=== PATIENT | male | born 1965 | race Caucasian/White ===

== ENCOUNTER → 2018-03-20 | Outpatient (REF) | payer OTHER ==
[2018-03-20 14:24] LABS: PSA SCREENING 0.67 NG/ML (< 4.0)
[2018-03-20 14:26] LABS: AMORPHOUS SEDIMENT SMALL (NEGATIVE); APPEARANCE, URINE HAZY (CLEAR); BACTERIA, URINE AUTO NEGATIVE (NEGATIVE); BILIRUBIN, URINE AUTO NEGATIVE (NEGATIVE); BLOOD, URINE BLOOD NEGATIVE (NEGATIVE); COLOR, URINE YELLOW (YELLOW); GLUCOSE, URINE (UA) AUTO NEGATIVE (NEGATIVE); KETONE, URINE AUTO NEGATIVE (NEGATIVE); LEUKOCYTE ESTERASE, URINE AUTO NEGATIVE (NEGATIVE); NITRITE, URINE AUTO NEGATIVE (NEGATIVE); PROTEIN, URINE AUTO NEGATIVE (NEGATIVE); RBC, URINE AUTO 1 /HPF (0-3); SPECIFIC GRAVITY URINE AUTO 1.012 (1.002-1.035); SQUAMOUS EPITHELIAL CELL UR AU 0 /HPF (0-6); UROBILINOGEN, URINE AUTO 0.2 mg/dL (0.0-2.0); WBC, URINE AUTO 1 /HPF (0-3)
[2018-03-20 16:18] LABS: CHLAMYDIA DNA AMPLIFICATION NEGATIVE (NEGATIVE); GC DNA AMPLIFICATION NEGATIVE (NEGATIVE)
== END ==
LOC: M SFHCPLAZ 10:19
DX: R35.0 Frequency of micturition (principal)

== ENCOUNTER 2018-06-16 11:59 | Day surgery (SDC) | payer OTHER ==
[2018-06-16] MEDS: NS 1,000 ML IV ×2 (06:00→12:26)
[2018-06-16] MEDS ORDERED: LIDOCAINE 2% INJ 100 MG/5 ML SDV (FOR ANES.) As Ordered (12:33)
[2018-06-16] MEDS ORDERED: PROPOFOL 200 MG/20 ML VIAL As Ordered ×2 (12:33→13:55)
== END 2018-06-16 14:42 | disposition home or self-care (01) ==
LOC: M OPP 11:59
DX: Z12.11 Encounter for screening for malignant neoplasm of colon (principal); K64.0 First degree hemorrhoids; K57.30 Diverticulosis of large intestine without perforation or abscess without bleeding; Z87.442 Personal history of urinary calculi; N40.1 Benign prostatic hyperplasia with lower urinary tract symptoms; F12.10 Cannabis abuse, uncomplicated; Z87.891 Personal history of nicotine dependence
CPT/HCPCS: G0121

== ENCOUNTER 2018-10-17 00:27 | Emergency (ER) | payer OTHER ==
[~2018-10-17] VITALS: Ht 182.9 cm; Wt 84.1 kg
[~2018-10-17 00:27] MED LIST: CIAL2.5T PO; TRAZ-160 PO; [UNRECOGNIZED DRUG - OTHER] PO; [UNRECOGNIZED DRUG - OTHER] PO
[2018-10-17] MEDS ORDERED: ONDANSETRON 4MG/2ML VIAL (J2405) IV ONE (00:45)
[2018-10-17] MEDS ORDERED: NS 1,000 ML IV ONE (00:45)
[2018-10-17] MEDS ORDERED: KETOROLAC 30 MG/ML VIAL (J1885) IV ONE (00:45)
[2018-10-17 01:03] LABS: BASO # 0.1 10^3/uL (0.0-0.2); BASO % 0.5 % (0.0-1.0); EOS # 0.1 10^3/uL (0.0-0.50); EOS % 0.5 % (0.0-3.0); HEMATOCRIT 42.3 % (42.0-52.0); HEMOGLOBIN 14.3 g/dl (13.5-17.5); LYMPH # 1.9 10^3/uL (1.5-4.5); LYMPH % 12.5 % (24.0-44.0); MEAN CORPUSCULAR HEMOGLOBIN 30.1 pg (27.0-33.0); MEAN CORPUSCULAR HGB CONC 33.8 g/dl (32.0-36.5); MEAN CORPUSCULAR VOLUME 89.1 fl (80.0-96.0); MONO % 6.9 % (0.0-5.0); NEUTROPHILS % 79.1 % (36.0-66.0); PLATELET COUNT, AUTOMATED 308 10^3/uL (150-450); RED BLOOD COUNT 4.75 10^6/uL (4.30-6.10); WHITE BLOOD COUNT 15.2 10^3/uL (4.0-10.0)
[2018-10-17 01:25] LABS: ALBUMIN 3.7 GM/DL (3.2-5.2); ALT/SGPT 18 U/L (12-78); BILIRUBIN,DIRECT 0.1 MG/DL (0.0-0.2); BILIRUBIN,TOTAL 0.4 MG/DL (0.2-1.0); BLOOD UREA NITROGEN 21 MG/DL (7-18); CALCIUM LEVEL 8.9 MG/DL (8.5-10.1); CARBON DIOXIDE LEVEL 24 MEQ/L (21-32); CHLORIDE LEVEL 103 MEQ/L (98-107); CREATININE FOR GFR 1.03 MG/DL (0.70-1.30); GLOMERULAR FILTRATION RATE > 60.0 (>56); GLUCOSE, FASTING 154 MG/DL (70-100); LIPASE 144 U/L (73-393); POTASSIUM SERUM 4.1 MEQ/L (3.5-5.1); SODIUM LEVEL 138 MEQ/L (136-145); TOTAL PROTEIN 6.8 GM/DL (6.4-8.2)
--- NOTE | 2018-10-17 01:55 | REPVR ---
EXAM: CT Abdomen and Pelvis Without Contrast EXAM DATE/TIME: 10/17/2018 1:24 AM CLINICAL HISTORY: 53 years old, male; Pain; Abdominal pain; Flank; Left; Additional info: Left flank pain, hematuria TECHNIQUE: Axial computed tomography images of the abdomen and pelvis without contrast. All CT scans at this facility use at least one of these dose optimization techniques: automated exposure control; mA and/or kV adjustment per patient size (includes targeted exams where dose is matched to clinical indication); or iterative reconstruction. Coronal and sagittal reformatted images were created and reviewed. COMPARISON: No relevant prior studies available. Study limitations: Evaluation for mass, inflammatory change, including bowel wall/fold thickening, viscera, and vasculature, is suboptimal without contrast. FINDINGS: LUNG BASES: Mild focal confluent opacity noted within the right middle lobe which could be secondary to mild acute infiltrate/pneumonia or atelectasis. Mild bibasal atelectasis and/or pulmonary parenchymal scarring. VASCULAR: No abdominal aortic aneurysm or retroperitoneal hematoma. Mild atherosclerosis. PERITONEAL : No free air or free fluid. GI: No hiatal hernia. The stomach is mildly distended with ingested material, fluid and gas. No appearance of bowel obstruction. There is no focal mesenteric inflammatory stranding. Small nonspecific mesenteric lymph nodes are seen. Scattered fecal material and gas within portions of the colon. Portions of the colon and rectum appear slightly thick walled. This could be artifact secondary to insufficient distention. There appears to be mildly elevated pericolonic and perirectal vascularity, mild proctocolitis would be difficult to exclude by imaging but could be correlated with any symptoms. There is diverticulosis. No conclusive acute diverticulitis seen. The appendix does not appear inflamed. HEPATOBILIARY, PANCREAS, SPLEEN: Sagittal hepatic length is 19 cm. No calcified gallstones. No pancreatic inflammation. Spleen not enlarged. ADRENALS, KIDNEYS, BLADDER, RETROPERITONEAL: Adrenals within normal limits. There is mild hydronephrosis of the left kidney. Within the proximal left ureter, just distal to the left UPJ there is a 5.5 x 4.6 x 5.6 mm calculus. No additional ureteral or obstructing calculi bilaterally. Small nonobstructing right lower pole renal calculi noted. The urinary bladder appears slightly thick walled. This could be artifact secondary to insufficient distention mild cystitis cannot be excluded. Slightly enlarged slightly indistinct prostate impressing along the base of the bladder. Clinical followup is advised. Prostate calcification noted. MUSCULOSKELETAL: Small fat containing umbilical hernia. Prominent fat within the inguinal canals. Degenerative changes of the spine and within the pelvis. IMPRESSION: Mild hydronephrosis of the left kidney, secondary to a 5.5 x 4.6 x 5.6 mm proximal ureteral calculus. Slightly thickwalled urinary bladder to be correlated with urinalysis and culture if mild cystitis may be a possibility. Other genitourinary findings discussed above. Nonspecific gastrointestinal findings as discussed above, could be correlated with any underlying symptoms. Other incidental findings discussed above. Electronically signed by: Sergey Randall On 10/17/2018 01:55:52 AM
[2018-10-17] MEDS ORDERED: KETO10TAB PO (02:29)
[2018-10-17] MEDS ORDERED: FLOM0.4C39 PO (02:29)
[2018-10-17] MEDS ORDERED: CIPR-249 PO (02:29)
[2018-10-17] MEDS ORDERED: TAMSULOSIN 0.4 MG CAP PO ONE (02:30)
[2018-10-17] MEDS ORDERED: CIPROFLOXACIN 500 MG TAB PO ONE (02:30)
[2018-10-17] MEDS ORDERED: NORCO 5/325MG TABLET (BULK FOR ED) PO ONE (02:30)
[2018-10-17 02:47] VITALS: BP 132/79
[2018-10-18] MEDS ORDERED: HYDR-3713 PO (12:26)
== END 2018-10-17 02:45 | disposition home or self-care (01) ==
LOC: M ED 00:27
DX: N12 Tubulo-interstitial nephritis, not specified as acute or chronic (principal); N30.01 Acute cystitis with hematuria; N20.1 Calculus of ureter; N13.30 Unspecified hydronephrosis; D72.829 Elevated white blood cell count, unspecified; Z87.442 Personal history of urinary calculi; Z87.891 Personal history of nicotine dependence
CPT/HCPCS: 36415; 74176; 80048; 80076; 81001; 83690; 85025; 87088; 87186; 96361; 96374; 96375; 99284; J1885; J2405

== ENCOUNTER 2018-10-18 10:12 | Day surgery (SDC) | payer OTHER ==
[~2018-10-18] VITALS: Ht 182.9 cm; Wt 88.5 kg
[~2018-10-18 10:12] MED LIST changes: +CIPR-249 PO; +FLOM0.4C39 PO; +KETO10TAB PO
[2018-10-18] MEDS ORDERED: GLYCOPYRROLATE INJ 0.2 MG/ML 2 ML VIAL As Ordered ONE (10:54)
[2018-10-18] MEDS ORDERED: PROPOFOL 200 MG/20 ML VIAL As Ordered ONE (10:54)
[2018-10-18] MEDS ORDERED: LIDOCAINE 2% 5ML JELLY UROJET As Ordered ONE (10:54)
[2018-10-18] MEDS ORDERED: dexameTHASONE 4 MG/ML 1ML VIAL (J1100) As Ordered ONE (10:54)
[2018-10-18] MEDS ORDERED: CONRAY-60 60% 50ML VIAL (Q9961) As Ordered ONE (10:54)
[2018-10-18] MEDS ORDERED: ROCURONIUM BROMIDE 50 MG/5 ML VIAL As Ordered ONE (10:54)
[2018-10-18] MEDS ORDERED: ONDANSETRON 4MG/2ML VIAL (J2405) As Ordered ONE (10:54)
[2018-10-18] MEDS ORDERED: NEOSTIGMINE 10 MG/10 ML VIAL (J2710) As Ordered ONE (10:54)
[2018-10-18] MEDS ORDERED: LIDOCAINE 2% INJ 100 MG/5 ML SDV (FOR ANES.) As Ordered ONE (10:54)
[2018-10-18] MEDS ORDERED: MIDAZOLAM INJ 2 MG/2 ML VIAL (J2250) As Ordered ONE (10:55)
[2018-10-18] MEDS ORDERED: fentaNYL 100 MCG/2 ML INJECTION (J3010) As Ordered ONE (10:55)
[2018-10-18] MEDS ORDERED: HYDR-3713 PO (12:26)
[2018-10-18] MEDS ORDERED: NORCO, ANEXSIA 5/325MG TABLET (HYDROcodone/ACETAMINOPHEN) PO PRN (12:30)
[2018-10-18] MEDS ORDERED: MORPHINE 10 MG/ML 1ML VIAL (J2270) IV PRN (12:45)
[2018-10-18] MEDS ORDERED: fentaNYL 100 MCG/2 ML INJECTION (J3010) IV PRN (12:45)
[2018-10-18] MEDS ORDERED: PERCOCET 5MG/325MG TAB PO PRN (12:45)
[2018-10-18] MEDS ORDERED: ONDANSETRON 4MG/2ML VIAL (J2405) IV PRN (12:45)
[2018-10-18] MEDS ORDERED: LR 1,000 ML IV SCH (12:45)
--- NOTE | 2018-10-18 13:19 | REP ---
RETROGRADE PYELOGRAM, SEVEN VIEWS: HISTORY: Stent placement. Seven portable radiographs were obtained with a C-arm. Contrast material is present in the left renal collecting system and ureter. Fluoro time 2 minutes 13 seconds. IMPRESSION: Retrograde pyelogram as described above. Electronically Signed by Alexandru Hubbard MD 10/18/2018 01:31 P
[2018-10-18 14:00] VITALS: BP 163/85
--- NOTE | 2018-10-18 14:25 | RO ---
DATE OF PROCEDURE: 10/18/2018 PREOPERATIVE DIAGNOSIS: Left proximal ureteral stone. POSTOPERATIVE DIAGNOSIS: Left proximal ureteral stone. OPERATIVE PROCEDURE PERFORMED: 1. Cystoscopy. 2. Left retrograde pyelogram. 3. Left ureteroscopy with stone extraction. SURGEON: Trevor Limon MD REFRIGERATION SUPERVISOR: ANESTHESIA: General. ESTIMATED BLOOD LOSS: Minimal. INDICATION: Mr. Ed Fleming is a 53-year-old gentleman with a prior history of ureterolithiasis who presented with a 5.6 mm stone at the left ureteropelvic junction (UPJ). He now presents for definitive surgical management of this problem. PROCEDURE IN DETAIL: The patient was brought into the operating room, placed in supine position. After administration of general anesthesia, he was placed in dorsal lithotomy position and prepped and draped in the usual sterile fashion. A cystourethroscopy was performed using a 21 [place] cystoscope. The anterior and posterior urethra were noted to be normal. The prostate revealed moderate elevation of the median bar with minimal lateral lobar tissue. The bladder was entered without difficulty. Upon entrance into the bladder, the ureteral orifices were normal anatomic position and produced clear efflux. There were no mucosal lesions identified, but there were grade 2 trabeculations with cellule formation, particularly on the left side of the bladder. There were no mucosal lesions identified. Using a 5 [place] open-ended catheter, a left retrograde pyelogram was performed. This revealed some edema distally and some edema in the region of the ureteropelvic junction, but no obvious ureteral calculus was identified. A 0.038 Sensor wire was placed up into the left renal pelvis under fluoroscopic guidance and a 12, 14, 38 cm ureteral access sheath was placed. A flexible ureteroscopy was then performed. All of the visualized calyces were explored and no obvious calculi was identified. A retrograde was again performed through the ureteroscope while it was sitting at the ureteropelvic junction and no filling defects were seen in the pelvis at that time. The scope was then carefully removed after the ureteral access sheath was removed, and again no ureteral calculi were identified. The ureteroscope and the ureteral access sheath was completely removed and cystoscopy was repeated. At this time, the previously described 5 mm stone was seen sitting in the trigone. This was grasped with a basket and removed in its entirety. This stone was not visualized anywhere in the bladder prior to the ureteroscopy. No stent was left given the passage of the stone and the new dilation of the ureteral orifice. The bladder was then drained in its entirety and the cystoscope and the sheath were removed. The patient was returned to supine position and anesthesia was reversed. He was transferred to a bed and taken to the postanesthesia care unit (PACU) in good condition. Of note, the needle and instrument count were correct at the conclusion of the case.
[2018-10-23 14:49] LABS: Ca Ox Monohydrate 80 % (.)
== END 2018-10-18 14:09 | disposition home or self-care (01) ==
LOC: M SDC 10:12
PROVIDERS: ATTEND Urology
DX: N20.1 Calculus of ureter (principal); Z87.891 Personal history of nicotine dependence; Z79.899 Other long term (current) drug therapy
CPT/HCPCS: 52352; 74420; 82360; 88300; C1769; C1894; C2617; J0690; J1100; J2250; J2405; J2710; J3010; Q9961

== ENCOUNTER → 2018-11-10 | Outpatient (REF) | payer OTHER ==
[~2018-11-10] MED LIST changes: +HYDR-3713 PO
[2018-11-10 18:44] LABS: APPEARANCE, URINE CLEAR (CLEAR); BACTERIA, URINE AUTO NEGATIVE (NEGATIVE); BILIRUBIN, URINE AUTO NEGATIVE (NEGATIVE); BLOOD, URINE BLOOD NEGATIVE (NEGATIVE); COLOR, URINE YELLOW (YELLOW); GLUCOSE, URINE (UA) AUTO NEGATIVE (NEGATIVE); KETONE, URINE AUTO NEGATIVE (NEGATIVE); LEUKOCYTE ESTERASE, URINE AUTO NEGATIVE (NEGATIVE); NITRITE, URINE AUTO NEGATIVE (NEGATIVE); PROTEIN, URINE AUTO NEGATIVE (NEGATIVE); RBC, URINE AUTO 1 /HPF (0-3); SQUAMOUS EPITHELIAL CELL UR AU 0 /HPF (0-6); UROBILINOGEN, URINE AUTO 0.2 mg/dL (0.0-2.0); WBC, URINE AUTO 1 /HPF (0-3)
== END ==
LOC: M SMT 16:48
PROVIDERS: ATTEND Nurse Practitioner Family
DX: N40.1 Benign prostatic hyperplasia with lower urinary tract symptoms (principal)

== ENCOUNTER → 2019-02-01 | Outpatient (CLI) | payer OTHER ==
[~2019-02-01] MED LIST changes: +ALBU8.5H; +AMOX875T2; +ASPI81TA85 PO; +PRED50TA
--- NOTE | 2019-02-01 09:28 | REP ---
Chest x-ray: Two views. History: Atypical chest pain. Comparison chest x-ray: December 04, 2008. Findings: The lungs are somewhat hyperinflated consistent with some degree of COPD with flattening of hemidiaphragms and an increase in the AP diameter of the chest. This is unchanged. No infiltrate is seen. Pleural angles are sharp. Heart size is normal. Pulmonary vasculature is not increased. There are mild degenerative changes of the thoracic spine. Impression: Hyperinflation. Otherwise no acute disease. Electronically Signed by Doug Giordano MD 02/01/2019 09:20 A
== END ==
LOC: M SMT 09:04
PROVIDERS: ATTEND Family Medicine
DX: R91.8 Other nonspecific abnormal finding of lung field (principal)

== ENCOUNTER → 2019-02-01 | Outpatient (REF) | payer OTHER ==
[~2019-02-01] MED LIST changes: -ALBU8.5H; -AMOX875T2; -ASPI81TA85 PO; -PRED50TA
[2019-02-01 10:06] LABS: BASO % 0.5 % (0.0-1.0); EOS # 0.1 10^3/uL (0.0-0.50); EOS % 1.8 % (0.0-3.0); HEMATOCRIT 46.4 % (42.0-52.0); HEMOGLOBIN 15.3 g/dl (13.5-17.5); LYMPH # 2.1 10^3/uL (1.5-4.5); LYMPH % 33.8 % (24.0-44.0); MEAN CORPUSCULAR HEMOGLOBIN 29.5 pg (27.0-33.0); MEAN CORPUSCULAR VOLUME 89.4 fl (80.0-96.0); MONO # 0.6 10^3/uL (0.0-0.8); MONO % 9.7 % (0.0-5.0); NEUTROPHILS # 3.3 10^3/uL (1.8-7.7); PLATELET COUNT, AUTOMATED 236 10^3/uL (150-450); RED BLOOD COUNT 5.19 10^6/uL (4.30-6.10); WHITE BLOOD COUNT 6.2 10^3/uL (4.0-10.0)
[2019-02-01 10:41] LABS: ALBUMIN 3.9 GM/DL (3.2-5.2); ALT/SGPT 20 U/L (12-78); BILIRUBIN,TOTAL 0.4 MG/DL (0.2-1.0); BLOOD UREA NITROGEN 13 MG/DL (7-18); CALCIUM LEVEL 8.3 MG/DL (8.5-10.1); CARBON DIOXIDE LEVEL 28 MEQ/L (21-32); CHLORIDE LEVEL 106 MEQ/L (98-107); GLOMERULAR FILTRATION RATE > 60.0 (>56); GLUCOSE, FASTING 91 MG/DL (70-100); POTASSIUM SERUM 4.3 MEQ/L (3.5-5.1); SODIUM LEVEL 141 MEQ/L (136-145); TOTAL PROTEIN 6.7 GM/DL (6.4-8.2); TROPONIN I < 0.02 NG/ML (< 0.10)
== END ==
LOC: M SFHCPLAZ 08:48
PROVIDERS: ATTEND Family Medicine
DX: R07.89 Other chest pain (principal); R06.02 Shortness of breath; F41.1 Generalized anxiety disorder

== ENCOUNTER 2019-02-21 04:40 | Emergency (ER) | payer OTHER ==
[~2019-02-21] VITALS: Ht 182.9 cm; Wt 90.0 kg
[~2019-02-21 04:40] MED LIST changes: +ALBU8.5H; +AMOX875T2; +ASPI81TA85 PO; +PRED50TA; -TRAZ-160 PO; +TRAZ-252 PO
[2019-02-21] MEDS ORDERED: BUPIVACAINE LIPOSOME/PF 1.3% 20ML VIAL (13.3MG/ML)(EXPAREL)(C9290 PER1MG) INFIL ONE (05:15)
[2019-02-21 05:37] VITALS: BP 122/82
[2019-02-21] MEDS ORDERED: KETOROLAC 60 MG/2 ML VIAL (J1885) IM ONE (05:45)
--- NOTE | 2019-02-21 08:33 | REP ---
Chest x-ray: Two views. History: Pain with cough. Comparison study: February 08, 2019. Findings: There is coarse linear bibasilar plate-like atelectasis. The lungs are hyperinflated consistent with some degree of COPD. The plate-like atelectasis as a new finding. No infiltrate is seen. Cardiomediastinal silhouette is unremarkable. No bony abnormality is seen. Nipple jewelry is noted on the right. Impression: Bibasilar plate-like atelectasis, new finding from February 08, 2019. No acute infiltrate. Hyperinflation. Electronically Signed by Doug Giordano MD 02/21/2019 08:25 A
== END 2019-02-21 06:07 | disposition home or self-care (01) ==
LOC: M ED 04:40
DX: R07.89 Other chest pain (principal); J45.909 Unspecified asthma, uncomplicated; Z72.0 Tobacco use; Z79.82 Long term (current) use of aspirin
CPT/HCPCS: 64420; 71046; 96372; 99284; C9290; J1885

== ENCOUNTER 2019-05-25 20:41 | Emergency (ER) | payer OTHER ==
[~2019-05-25] VITALS: Ht 182.9 cm; Wt 88.6 kg
[2019-05-25] MEDS ORDERED: NS 1,000 ML IV ONE (21:30)
[2019-05-25 21:53] LABS: BASO # 0.1 10^3/uL (0.0-0.2); BASO % 0.7 % (0.0-1.0); EOS # 0.3 10^3/uL (0.0-0.50); EOS % 3.4 % (0.0-3.0); HEMATOCRIT 42.7 % (42.0-52.0); HEMOGLOBIN 14.1 g/dl (13.5-17.5); LYMPH # 2.9 10^3/uL (1.5-4.5); LYMPH % 34.6 % (24.0-44.0); MEAN CORPUSCULAR HEMOGLOBIN 31.3 pg (27.0-33.0); MEAN CORPUSCULAR VOLUME 94.7 fl (80.0-96.0); MONO # 0.8 10^3/uL (0.0-0.8); MONO % 9.2 % (0.0-5.0); NEUTROPHILS # 4.4 10^3/uL (1.8-7.7); NEUTROPHILS % 51.9 % (36.0-66.0); PLATELET COUNT, AUTOMATED 279 10^3/uL (150-450); RED BLOOD COUNT 4.51 10^6/uL (4.30-6.10); WHITE BLOOD COUNT 8.5 10^3/uL (4.0-10.0)
[2019-05-25] MEDS ORDERED: ISOVUE-370 76% 100ML VIAL (Q9967) As Ordered ONE (22:02)
[2019-05-25 22:26] LABS: ALBUMIN 3.2 GM/DL (3.2-5.2); ALT/SGPT 25 U/L (12-78); BILIRUBIN,DIRECT < 0.1 MG/DL (0.0-0.2); BILIRUBIN,TOTAL 0.2 MG/DL (0.2-1.0); LIPASE 436 U/L (73-393); TOTAL PROTEIN 6.1 GM/DL (6.4-8.2)
--- NOTE | 2019-05-25 23:06 | REPVR ---
EXAM: CT Abdomen and Pelvis Without and With Contrast EXAM DATE/TIME: 05/25/2019 10:07 PM CLINICAL HISTORY: 53 years old, male; Abdominal pain; Localized; Left; Additional info: Left flank/lower abd. Pain; Stone vs colitis vs prostatitis TECHNIQUE: Imaging protocol: Computed tomography of the abdomen and pelvis without and with intravenous contrast. Radiation optimization: All CT scans at this facility use at least one of these dose optimization techniques: automated exposure control; mA and/or kV adjustment per patient size (includes targeted exams where dose is matched to clinical indication); or iterative reconstruction. Contrast material: ISOVUE 370; Contrast volume: 100 ml; Contrast route: IV; COMPARISON: CT ABD PELVIS W/O CONTRAST 10/17/2018 1:23 AM FINDINGS: Liver: No discreet mass. Gallbladder and bile ducts: Mild symmetric gallbladder wall thickening may be related to underdistention. Pancreas: No ductal dilation. Spleen: No splenomegaly. Adrenals: No mass. Kidneys and ureters: Nonobstructing right renal lower pole nephrolithiasis. No hydroureteronephrosis. A 1.1 x 1.0 cm cyst is seen in the anterior left upper pole. Stomach and bowel: Focal thickening and pericolonic inflammatory change noted involving the distal descending colon (series 301 images 70-82) . A similar-appearing area is seen involving the sigmoid colon in the left pelvis (series 301 images 100-108). Multiple diverticula are noted in theses regions. No evidence of bowel obstruction. Appendix: No evidence of appendicitis. Intraperitoneal space: No free air. No significant fluid collection. Vasculature: No abdominal aortic aneurysm. Lymph nodes: No enlarged lymph nodes. Bladder: Mild symmetrical bladder wall thickening is again noted and may be a chronic finding. Please correlate for chronic cystitis. Reproductive: Mildly enlarged prostate with right prostate calcification. Bones/joints: No acute fractures or dislocations. Degenerative changes of the bilateral hips and lower lumbar spine. Soft tissues: Small fat containing umbilical hernia. IMPRESSION: Focal thickening and pericolonic inflammatory change involving the distal descending colon as well as the sigmoid colon, as above. This likely represents diverticulitis/focal colitis. Recommend followup resolution. Other ancillary findings as above. Electronically signed by: Darío Presley On 05/25/2019 23:06:20 PM
[2019-05-25] MEDS ORDERED: metroNIDAZOLE (FLAGYL) 500 MG TAB PO ONE (23:15)
[2019-05-25] MEDS ORDERED: CIPROFLOXACIN 500 MG TAB PO ONE (23:15)
[2019-05-25] MEDS ORDERED: FLAG500T PO (23:25)
[2019-05-25] MEDS ORDERED: CIPR-249 PO (23:25)
[2019-05-25 23:38] VITALS: BP 126/80
== END 2019-05-25 23:41 | disposition home or self-care (01) ==
LOC: M ED 20:41
DX: K57.92 Diverticulitis of intestine, part unspecified, without perforation or abscess without bleeding (principal); Z79.82 Long term (current) use of aspirin; F17.210 Nicotine dependence, cigarettes, uncomplicated
CPT/HCPCS: 36415; 74178; 80047; 80076; 83690; 85025; 96360; 96361; 99284; Q9967

== ENCOUNTER → 2019-05-31 | Outpatient (REF) | payer OTHER ==
[~2019-05-31] MED LIST changes: +FLAG500T PO
[2019-05-31 19:07] LABS: C REACTIVE PROTEIN QUANTITATIV 0.49 MG/DL (0.00-0.30)
[2019-05-31 19:46] LABS: CHLAMYDIA DNA AMPLIFICATION NEGATIVE (NEGATIVE); GC DNA AMPLIFICATION NEGATIVE (NEGATIVE)
[2019-06-01 12:16] LABS: HIV 1&2 SCREEN CENTAUR NEGATIVE (NEGATIVE)
== END ==
LOC: M SFHCPLAZ 15:35
PROVIDERS: ATTEND Family Medicine
DX: K57.92 Diverticulitis of intestine, part unspecified, without perforation or abscess without bleeding (principal); R39.9 Unspecified symptoms and signs involving the genitourinary system; Z20.2 Contact with and (suspected) exposure to infections with a predominantly sexual mode of transmission

== ENCOUNTER → 2019-05-31 | Outpatient (CLI) | payer OTHER ==
[~2019-05-31] MED LIST changes: +PROHANCE 279.3MG/ML 15ML VIAL (A9576) As Ordered ONE; +PROHANCE 279.3MG/ML 5ML VIAL (A9576) As Ordered ONE
--- NOTE | 2019-06-01 08:34 | REP ---
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 Weakness. Confusion. No comparison brain imaging. TECHNIQUE: Axial and sagittal imaging planes are utilized for T1 and T2-weighted scans. Sequences include spin-echo, fast spin echo, FLAIR, and diffusion weighted sequences. Gadolinium enhancement dose: 17 mL of intravenous ProHance. MRI FINDINGS: No bony calvarial lesion is seen. Craniocervical junction and upper cervical cord are unremarkable. There is no MR evidence of significant paranasal sinus disease. No intraorbital abnormality is seen. Lateral third ventricles are normal in size and position. There is no evidence of intracranial infarction. Diffusion weighted scans show no evidence of restricted diffusion. There is no intracranial hemorrhage. There are scattered periventricular and subcortical foci of T2 hyperintensity in the frontal lobes and in the left temporal lobe consistent with minimal small vessel atherosclerotic changes. The largest of these is in the right periventricular white matter of the frontal lobe. Postcontrast images show enhancement in normal vasculature. No abnormal contrast enhancement is appreciated. IMPRESSION: Findings consistent with small vessel atherosclerotic changes. There is no evidence of cerebral infarction or hemorrhage. No mass or midline shift is seen. Electronically Signed by Doug Giordano MD 06/01/2019 08:41 A
== END ==
LOC: M RAD 17:53
PROVIDERS: ATTEND Internal Medicine Cardiovascular Disease
DX: I69.354 Hemiplegia and hemiparesis following cerebral infarction affecting left non-dominant side (principal)
CPT/HCPCS: 70553; A9576

== ENCOUNTER → 2020-04-02 | Outpatient (REF) | payer OTHER ==
[~2020-04-02] MED LIST changes: -ASPI81TA85 PO; +ASPI81TA86 PO; -PROHANCE 279.3MG/ML 15ML VIAL (A9576) As Ordered ONE; -PROHANCE 279.3MG/ML 5ML VIAL (A9576) As Ordered ONE
[2020-04-02 12:19] LABS: ALBUMIN 3.6 GM/DL (3.2-5.2); ALT/SGPT 19 U/L (12-78); BILIRUBIN,TOTAL 0.2 MG/DL (0.2-1.0); BLOOD UREA NITROGEN 20 MG/DL (7-18); CALCIUM LEVEL 8.6 MG/DL (8.5-10.1); CARBON DIOXIDE LEVEL 31 MEQ/L (21-32); CHLORIDE LEVEL 108 MEQ/L (98-107); CHOLESTEROL LEVEL 153 MG/DL (<200); CHOLESTEROL RISK RATIO 4.371 (<5); CREATININE FOR GFR 0.98 MG/DL (0.70-1.30); GLOMERULAR FILTRATION RATE > 60.0 (>56); GLUCOSE, FASTING 95 MG/DL (70-100); HDL CHOLESTEROL 35 MG/DL (>40); LDL CHOLESTEROL 97 MG/DL (<100); NON-HDL-C 118 MG/DL; POTASSIUM SERUM 4.7 MEQ/L (3.5-5.1); SODIUM LEVEL 141 MEQ/L (136-145); TOTAL PROTEIN 6.3 GM/DL (6.4-8.2); TRIGLYCERIDES LEVEL 107 MG/DL (<150)
== END ==
LOC: M SFHCPLAZ 08:04
PROVIDERS: ATTEND Family Medicine
DX: Z13.220 Encounter for screening for lipoid disorders (principal); Z13.1 Encounter for screening for diabetes mellitus; Z12.5 Encounter for screening for malignant neoplasm of prostate; R53.83 Other fatigue

== ENCOUNTER → 2020-04-07 | Outpatient (CLI) | payer OTHER ==
--- NOTE | 2020-04-07 08:24 | PFTRPT ---
Height: 72.00 Inches Weight: 185.00 Lbs BSA: 2.06 Diagnosis: R06.2 DATE OF PROCEDURE: 04/07/2020 ORDERED BY: Dr. Sumner Spirometry: Pre and post bronchodilator study of excellent technical quality. Forced vital capacity reduced. FEV1 out of proportion. Obstructive index is, therefore, reduced. Flow Volume Loop: Expiratory limb of the flow volume loop consistent with significant flow rate limitation. Very favorable bronchodilator response is identified. Lung Volumes: Total lung capacity elevated. Residual volume consistent with air trapping. Diffusing Capacity: Diffusing capacity is reduced but is appropriate for alveolar volume. Hemoglobin: Hemoglobin acceptable at 13.1. Airway Mechanics: Airway resistance and conductance are acceptable. IMPRESSION: Moderate to severe obstructive ventilatory impairment with underlying air trapping. Diffusing capacity impairment that is appropriate for alveolar volume. Favorable bronchodilator response. Please correlate clinically. MTDD
== END ==
LOC: M CARPUL 07:45
PROVIDERS: ATTEND Family Medicine
DX: R06.02 Shortness of breath (principal)

== ENCOUNTER → 2022-04-21 | Outpatient (CLI) | payer OTHER ==
[2022-04-21 18:05] LABS: BASO # 0.1 10^3/uL (0.0-0.2); BASO % 1.4 % (0.0-1.0); EOS # 0.1 10^3/uL (0.0-0.5); EOS % 1.3 % (0.0-3.0); HEMATOCRIT 42.1 % (42.0-52.0); HEMOGLOBIN 13.7 g/dl (13.5-17.5); LYMPH # 2.7 10^3/uL (1.5-5.0); LYMPH % 33.9 % (24.0-44.0); MEAN CORPUSCULAR HEMOGLOBIN 30.1 pg (27.0-33.0); MEAN CORPUSCULAR HGB CONC 32.5 g/dl (32.0-36.5); MEAN CORPUSCULAR VOLUME 92.5 fl (80.0-96.0); MONO # 0.6 10^3/uL (0.0-0.8); MONO % 7.7 % (2.0-8.0); NEUTROPHILS # 4.3 10^3/uL (1.5-8.5); NEUTROPHILS % 55.6 % (36.0-66.0); PLATELET COUNT, AUTOMATED 393 10^3/uL (150-450); RED BLOOD COUNT 4.55 10^6/uL (4.30-6.10); WHITE BLOOD COUNT 7.8 10^3/uL (4.0-10.0)
[2022-04-21 18:08] LABS: APPEARANCE, URINE HAZY (CLEAR); BACTERIA, URINE AUTO NEGATIVE (NEGATIVE); BILIRUBIN, URINE AUTO NEGATIVE (NEGATIVE); BLOOD, URINE BLOOD NEGATIVE (NEGATIVE); COLOR, URINE YELLOW (YELLOW); GLUCOSE, URINE (UA) AUTO NEGATIVE (NEGATIVE); KETONE, URINE AUTO NEGATIVE (NEGATIVE); LEUKOCYTE ESTERASE, URINE AUTO NEGATIVE (NEGATIVE); NITRITE, URINE AUTO NEGATIVE (NEGATIVE); PROTEIN, URINE AUTO NEGATIVE (NEGATIVE); RBC, URINE AUTO 0 /HPF (0-3); SPECIFIC GRAVITY URINE AUTO 1.016 (1.002-1.035); SQUAMOUS EPITHELIAL CELL UR AU 0 /HPF (0-6); UROBILINOGEN, URINE AUTO 0.2 mg/dL (0.0-2.0); WBC, URINE AUTO 0 /HPF (0-3)
[2022-04-21 18:51] LABS: ALBUMIN 3.6 GM/DL (3.2-5.2); ALT/SGPT 26 U/L (12-78); BILIRUBIN,TOTAL 0.2 MG/DL (0.2-1.0); BLOOD UREA NITROGEN 15 MG/DL (7-18); CALCIUM LEVEL 8.8 MG/DL (8.5-10.1); CARBON DIOXIDE LEVEL 30 MEQ/L (21-32); CHLORIDE LEVEL 106 MEQ/L (98-107); CREATININE FOR GFR 1.04 MG/DL (0.70-1.30); FREE T4 0.99 NG/DL (0.76-1.46); GLOMERULAR FILTRATION RATE > 60.0 (>56); GLUCOSE, FASTING 84 MG/DL (70-100); POTASSIUM SERUM 4.8 MEQ/L (3.5-5.1); SODIUM LEVEL 140 MEQ/L (136-145); TOTAL PROTEIN 6.4 GM/DL (6.4-8.2)
== END ==
LOC: M PLALAB 15:18
PROVIDERS: ATTEND Physician Assistant
DX: R42 Dizziness and giddiness (principal); R35.0 Frequency of micturition; R19.7 Diarrhea, unspecified

== ENCOUNTER → 2022-04-30 | Outpatient (CLI) | payer OTHER ==
[~2022-04-30] MED LIST changes: +GASTROGRAFIN SOLUTION 30ML (Q9963) As Ordered ONE; +ISOVUE-370 76% 100ML VIAL As Ordered ONE
== END ==
LOC: M RAD 16:23
PROVIDERS: ATTEND Physician Assistant
DX: R42 Dizziness and giddiness (principal); M54.2 Cervicalgia; R19.7 Diarrhea, unspecified; J43.9 Emphysema, unspecified; K57.30 Diverticulosis of large intestine without perforation or abscess without bleeding; N40.0 Benign prostatic hyperplasia without lower urinary tract symptoms; M47.812 Spondylosis without myelopathy or radiculopathy, cervical region
CPT/HCPCS: 70450; 72125; 74177; Q9963; Q9967

== ENCOUNTER → 2022-05-18 | Outpatient (CLI) | payer OTHER ==
[~2022-05-18] MED LIST changes: -GASTROGRAFIN SOLUTION 30ML (Q9963) As Ordered ONE; -ISOVUE-370 76% 100ML VIAL As Ordered ONE
== END ==
LOC: M RAD 13:50
PROVIDERS: ATTEND Physician Assistant
DX: N40.0 Benign prostatic hyperplasia without lower urinary tract symptoms (principal); N32.89 Other specified disorders of bladder

== ENCOUNTER 2022-05-20 12:41 | Emergency (ER) | payer OTHER ==
[~2022-05-20] VITALS: Ht 182.9 cm; Wt 80.9 kg
[2022-05-20 12:53] VITALS: BP 150/78
== END 2022-05-20 13:06 | disposition left against medical advice (07) ==
LOC: M ED 12:41 → EDBD 12:41 → M ED 13:06
DX: Z53.21 Procedure and treatment not carried out due to patient leaving prior to being seen by health care provider (principal)

== ENCOUNTER 2022-06-03 13:05 | Emergency (ER) | payer OTHER ==
[~2022-06-03] VITALS: Ht 182.9 cm; Wt 80.4 kg
[2022-06-03] MEDS ORDERED: IBUP200T46 PO (13:31)
[2022-06-03] MEDS ORDERED: methocarbamoL 500 MG TAB PO ONE (14:30)
[2022-06-03] MEDS ORDERED: predniSONE 20 MG TAB PO ONE (14:30)
[2022-06-03] MEDS ORDERED: KETOROLAC 60MG 2ML VIAL IM ONE (14:30)
[2022-06-03] MEDS ORDERED: METH-1165 PO (15:42)
[2022-06-03] MEDS ORDERED: PRED10TA2 PO (15:43)
[2022-06-03 16:01] VITALS: BP 133/80
== END 2022-06-03 16:03 | disposition home or self-care (01) ==
LOC: M ED 13:05
DX: S32.029A Unspecified fracture of second lumbar vertebra, initial encounter for closed fracture (principal); W19.XXXA Unspecified fall, initial encounter; Y92.099 Unspecified place in other non-institutional residence as the place of occurrence of the external cause; Z79.82 Long term (current) use of aspirin
CPT/HCPCS: 72131; 76870; 93976; 96372; 99283; J1885; J7512

== ENCOUNTER → 2022-06-07 | Outpatient (REF) | payer OTHER ==
[~2022-06-07] MED LIST changes: +IBUP200T46 PO; +METH-1165 PO; +PRED10TA2 PO
[2022-06-07 19:59] LABS: APPEARANCE, URINE MANUAL CLEAR (CLEAR); BILIRUBIN, URINE MANUAL NEGATIVE (NEGATIVE); BLOOD URINE MANUAL NEGATIVE (NEGATIVE); COLOR, URINE MANUAL YELLOW (YELLOW); GLUCOSE, URINE (UA) MANUAL NEGATIVE (NEGATIVE); KETONE, URINE MANUAL NEGATIVE (NEGATIVE); LEUKOCYTE ESTERASE, URINE MAN NEGATIVE (NEGATIVE); NITRITE, URINE MANUAL NEGATIVE (NEGATIVE); PROTEIN, URINE MANUAL NEGATIVE (NEGATIVE); UROBILINOGEN, URINE MANUAL NORMAL (NORMAL)
== END ==
LOC: M SMT 16:38
PROVIDERS: ATTEND Urology
DX: R35.0 Frequency of micturition (principal)

== ENCOUNTER → 2022-07-29 | Outpatient (REF) | payer OTHER ==
[2022-07-29 19:12] LABS: BASO # 0.1 10^3/uL (0.0-0.2); BASO % 0.8 % (0.0-1.0); EOS # 0.2 10^3/uL (0.0-0.5); EOS % 1.6 % (0.0-3.0); HEMATOCRIT 43.5 % (42.0-52.0); HEMOGLOBIN 14.4 g/dl (13.5-17.5); LYMPH # 3.4 10^3/uL (1.5-5.0); LYMPH % 32.4 % (24.0-44.0); MEAN CORPUSCULAR HEMOGLOBIN 30.6 pg (27.0-33.0); MEAN CORPUSCULAR HGB CONC 33.1 g/dl (32.0-36.5); MEAN CORPUSCULAR VOLUME 92.6 fl (80.0-96.0); MONO # 0.8 10^3/uL (0.0-0.8); MONO % 7.7 % (2.0-8.0); NEUTROPHILS # 5.9 10^3/uL (1.5-8.5); PLATELET COUNT, AUTOMATED 436 10^3/uL (150-450); WHITE BLOOD COUNT 10.4 10^3/uL (4.0-10.0)
[2022-07-29 19:55] LABS: ALBUMIN 3.6 GM/DL (3.2-5.2); ALT/SGPT 41 U/L (12-78); BILIRUBIN,TOTAL 0.2 MG/DL (0.2-1.0); BLOOD UREA NITROGEN 21 MG/DL (7-18); CALCIUM LEVEL 8.5 MG/DL (8.5-10.1); CARBON DIOXIDE LEVEL 30 MEQ/L (21-32); CHLORIDE LEVEL 103 MEQ/L (98-107); CREATININE FOR GFR 1.01 MG/DL (0.70-1.30); GLOMERULAR FILTRATION RATE > 60.0 (>56); GLUCOSE, FASTING 97 MG/DL (70-100); IRON (FE) 94 UG/DL (65-175); MAGNESIUM LEVEL 2.1 MG/DL (1.8-2.4); POTASSIUM SERUM 4.4 MEQ/L (3.5-5.1); SODIUM LEVEL 139 MEQ/L (136-145); THYROID STIMULATING HORMONE 0.767 uIU/ML (0.358-3.740); TOTAL PROTEIN 6.6 GM/DL (6.4-8.2)
[2022-07-29 20:31] LABS: VITAMIN B12 LEVEL 685 PG/ML (247-911)
[2022-07-29 20:40] LABS: GC DNA AMPLIFICATION NEGATIVE (NEGATIVE)
[2022-07-29 21:07] LABS: HIV 1&2 SCREEN CENTAUR NEGATIVE (NEGATIVE)
== END ==
LOC: M LABDRAWP 18:42
PROVIDERS: ATTEND Physician Assistant
DX: G62.9 Polyneuropathy, unspecified (principal); Z11.3 Encounter for screening for infections with a predominantly sexual mode of transmission
CPT/HCPCS: 80053; 82607; 83540; 83735; 84443; 85025; 86780; 87389; 87661; 87810; 87850; G0472

== ENCOUNTER → 2022-08-25 | Outpatient (CLI) | payer OTHER | LOC: M RAD 14:41 | PROVIDERS: ATTEND Physician Assistant | DX: R42 Dizziness and giddiness (principal) ==

== ENCOUNTER → 2022-11-15 | Outpatient (CLI) | payer OTHER ==
[2022-11-15 17:58] LABS: APPEARANCE, URINE CLEAR (CLEAR); BACTERIA, URINE AUTO NEGATIVE (NEGATIVE); BILIRUBIN, URINE AUTO NEGATIVE (NEGATIVE); BLOOD, URINE BLOOD 1+ (NEGATIVE); COLOR, URINE YELLOW (YELLOW); GLUCOSE, URINE (UA) AUTO NEGATIVE (NEGATIVE); KETONE, URINE AUTO NEGATIVE (NEGATIVE); LEUKOCYTE ESTERASE, URINE AUTO NEGATIVE (NEGATIVE); NITRITE, URINE AUTO NEGATIVE (NEGATIVE); PROTEIN, URINE AUTO NEGATIVE (NEGATIVE); RBC, URINE AUTO 1 /HPF (0-3); SPECIFIC GRAVITY URINE AUTO 1.021 (1.002-1.035); SQUAMOUS EPITHELIAL CELL UR AU 0 /HPF (0-6); UROBILINOGEN, URINE AUTO 0.2 mg/dL (0.0-2.0); WBC, URINE AUTO 1 /HPF (0-3)
== END ==
LOC: M RAD 13:36
PROVIDERS: ATTEND Physician Assistant Medical
DX: N23 Unspecified renal colic (principal); N20.0 Calculus of kidney; M47.816 Spondylosis without myelopathy or radiculopathy, lumbar region; M16.0 Bilateral primary osteoarthritis of hip

== ENCOUNTER → 2022-11-23 | Outpatient (CLI) | payer OTHER | LOC: M PLAIMG 11:47 | PROVIDERS: ATTEND Physician Assistant | DX: R05.2 Subacute cough (principal) ==

== ENCOUNTER → 2023-08-11 | Outpatient (CLI) | payer OTHER ==
[2023-08-11 14:25] LABS: BASO # 0.1 10^3/uL (0.0-0.2); BASO % 1.2 % (0.0-1.0); EOS # 0.1 10^3/uL (0.0-0.5); EOS % 1.9 % (0.0-3.0); HEMATOCRIT 44.5 % (42.0-52.0); HEMOGLOBIN 14.6 g/dl (13.5-17.5); LYMPH # 2.5 10^3/uL (1.5-5.0); LYMPH % 43.5 % (24.0-44.0); MEAN CORPUSCULAR HEMOGLOBIN 30.9 pg (27.0-33.0); MEAN CORPUSCULAR HGB CONC 32.8 g/dl (32.0-36.5); MEAN CORPUSCULAR VOLUME 94.1 fl (80.0-96.0); MONO # 0.5 10^3/uL (0.0-0.8); MONO % 8.6 % (2.0-8.0); NEUTROPHILS # 2.6 10^3/uL (1.5-8.5); NEUTROPHILS % 44.6 % (36.0-66.0); PLATELET COUNT, AUTOMATED 303 10^3/uL (150-450); RED BLOOD COUNT 4.73 10^6/uL (4.30-6.10); WHITE BLOOD COUNT 5.8 10^3/uL (4.0-10.0)
[2023-08-11 14:57] LABS: ALBUMIN 3.9 G/DL (3.2-5.2); ALKALINE PHOSPHATASE 87 U/L (46-116); ALT/SGPT 22 U/L (7.0-40); AST/SGOT 23 U/L (<34); BILIRUBIN,TOTAL 0.4 MG/DL (0.3-1.2); BLOOD UREA NITROGEN 16 MG/DL (9-23); CALCIUM LEVEL 8.9 MG/DL (8.5-10.1); CARBON DIOXIDE LEVEL 31 MMOL/L (20-31); CHLORIDE LEVEL 105 MMOL/L (98-107); CHOLESTEROL LEVEL 172 MG/DL (<200); CREATININE FOR GFR 0.88 MG/DL (0.70-1.30); FREE T4 1.01 NG/DL (0.89-1.76); GLOMERULAR FILTRATION RATE > 60.0 (>56); GLUCOSE, FASTING 97 MG/DL (60-100); HDL CHOLESTEROL 59.2 MG/DL (>40); LDL CHOLESTEROL 103.4 MG/DL (<100); NON-HDL-C 112.8 MG/DL; POTASSIUM SERUM 4.7 MMOL/L (3.5-5.1); SODIUM LEVEL 139 MMOL/L (136-145); TOTAL PROTEIN 6.5 G/DL (5.7-8.2); TRIGLYCERIDES LEVEL 47 MG/DL (<150)
[2023-08-12 15:09] LABS: TESTOSTERONE FREE (DIRECT) 3.7 pg/mL (7.2-24.0)
== END ==
LOC: M PLALAB 09:46
PROVIDERS: ATTEND Physician Assistant
DX: N40.0 Benign prostatic hyperplasia without lower urinary tract symptoms (principal); F33.2 Major depressive disorder, recurrent severe without psychotic features; F41.9 Anxiety disorder, unspecified; N52.9 Male erectile dysfunction, unspecified

== ENCOUNTER → 2023-09-06 | Outpatient (CLI) | payer OTHER | LOC: M SLEEP HO 10:37 | PROVIDERS: ATTEND Physician Assistant | DX: J45.40 Moderate persistent asthma, uncomplicated (principal) ==

== ENCOUNTER → 2023-12-08 | Outpatient (CLI) | payer OTHER | LOC: M PLAIMG 09:38 | PROVIDERS: ATTEND Physician Assistant | DX: R05.3 Chronic cough (principal); R91.8 Other nonspecific abnormal finding of lung field ==

== ENCOUNTER → 2024-05-23 | Outpatient (REF) | LOC: M PLAIMG 11:59 | PROVIDERS: ATTEND Internal Medicine | DX: R52 Pain, unspecified (principal) ==

== ENCOUNTER → 2024-06-22 | Outpatient (CLI) | payer OTHER ==
[2024-06-22 17:50] LABS: BASO # 0.1 10^3/uL (0.0-0.2); BASO % 1.1 % (0.0-1.0); EOS # 0.1 10^3/uL (0.0-0.5); EOS % 1.3 % (0.0-3.0); HEMATOCRIT 44.8 % (42.0-52.0); HEMOGLOBIN 14.8 g/dl (13.5-17.5); LYMPH # 1.9 10^3/uL (1.5-5.0); LYMPH % 33.9 % (24.0-44.0); MEAN CORPUSCULAR HEMOGLOBIN 31.1 pg (27.0-33.0); MEAN CORPUSCULAR VOLUME 94.1 fl (80.0-96.0); MONO # 0.6 10^3/uL (0.0-0.8); MONO % 9.9 % (2.0-8.0); NEUTROPHILS % 53.3 % (36.0-66.0); PLATELET COUNT, AUTOMATED 316 10^3/uL (150-450); RED BLOOD COUNT 4.76 10^6/uL (4.30-6.10); WHITE BLOOD COUNT 5.5 10^3/uL (4.0-10.0)
[2024-06-22 18:03] LABS: IRON (FE) 86 UG/DL (65-175); PERCENT SATURATION 27.5 % (19.7-50.0); TOTAL IRON BINDING CAPACITY 313 UG/DL (250-425)
[2024-06-22 18:04] LABS: ALBUMIN 3.7 G/DL (3.2-5.2); ALKALINE PHOSPHATASE 89 U/L (46-116); ALT/SGPT 12 U/L (7.0-40); AST/SGOT 15 U/L (<34); BILIRUBIN,TOTAL 0.4 MG/DL (0.3-1.2); BLOOD UREA NITROGEN 13 MG/DL (9-23); CALCIUM LEVEL 9.3 MG/DL (8.5-10.1); CARBON DIOXIDE LEVEL 30 MMOL/L (20-31); CHLORIDE LEVEL 110 MMOL/L (98-107); CREATININE FOR GFR 0.94 MG/DL (0.70-1.30); FREE T4 1.22 NG/DL (0.89-1.76); GLOMERULAR FILTRATION RATE > 60.0 (>56); GLUCOSE, FASTING 91 MG/DL (60-100); POTASSIUM SERUM 4.8 MMOL/L (3.5-5.1); SODIUM LEVEL 140 MMOL/L (136-145); THYROID STIMULATING HORMONE 1.054 uIU/ML (0.55-4.78); TOTAL PROTEIN 6.6 G/DL (5.7-8.2)
[2024-06-22 18:05] LABS: FERRITIN 98.3 NG/ML (10.5-307.3); TOTAL 25(OH) VITAMIN D 22.8 NG/ML (20.0-100.0)
[2024-06-22 18:06] LABS: FOLATE 7.3 NG/ML (>5.4); VITAMIN B12 LEVEL 510 PG/ML (211-911)
[2024-06-22 18:33] LABS: HEMOGLOBIN A1c 5.4 % (4.0-6.0)
== END ==
LOC: M PLALAB 14:28
PROVIDERS: ATTEND Physician Assistant
DX: G62.9 Polyneuropathy, unspecified (principal); R42 Dizziness and giddiness; R11.0 Nausea; Z13.1 Encounter for screening for diabetes mellitus

== ENCOUNTER → 2024-07-11 | Outpatient (CLI) | payer OTHER ==
[~2024-07-11] MED LIST changes: +FLUT1BLS8 INH; +LORA1TAB23 PO
== END ==
LOC: M SOG 07:28
PROVIDERS: ATTEND Orthopaedic Surgery
DX: M54.50 Low back pain, unspecified (principal)

== ENCOUNTER 2024-07-12 13:53 | Inpatient (IN) | payer OTHER ==
[~2024-07-12] VITALS: Ht 182.9 cm; Wt 195.0 kg
[~2024-07-12 13:53] MED LIST changes: -FLUT1BLS8 INH; -LORA1TAB23 PO
[2024-07-12 14:49] LABS: HEMATOCRIT 45.8 % (42.0-52.0); HEMOGLOBIN 15.5 g/dl (13.5-17.5); MEAN CORPUSCULAR HEMOGLOBIN 31.8 pg (27.0-33.0); MEAN CORPUSCULAR HGB CONC 33.8 g/dl (32.0-36.5); MEAN CORPUSCULAR VOLUME 93.9 fl (80.0-96.0); PLATELET COUNT, AUTOMATED 323 10^3/uL (150-450); RED BLOOD COUNT 4.88 10^6/uL (4.30-6.10); WHITE BLOOD COUNT 8.6 10^3/uL (4.0-10.0)
[2024-07-12 15:09] LABS: AMPHETAMINES LEVEL URINE NEGATIVE (NEGATIVE); BARBITURATES URINE NEGATIVE (NEGATIVE); BENZODIAZEPINES URINE NEGATIVE (NEGATIVE); COCAINE METABOLITE URINE NEGATIVE (NEGATIVE); METHADONE URINE NEGATIVE (NEGATIVE); OPIATES URINE NEGATIVE (NEGATIVE); PHENCYCLIDINE URINE NEGATIVE (NEGATIVE)
[2024-07-12 15:11] LABS: CANNABINOIDS URINE POSITIVE (NEGATIVE); ETHYL ALCOHOL (ETHANOL) < 0.003 % (0.000-0.010)
[2024-07-12 15:13] LABS: ALBUMIN 3.9 G/DL (3.2-5.2); ALKALINE PHOSPHATASE 97 U/L (46-116); ALT/SGPT 11 U/L (7.0-40); AST/SGOT 14 U/L (<34); BILIRUBIN,DIRECT < 0.1 MG/DL (<0.4); BILIRUBIN,TOTAL 0.7 MG/DL (0.3-1.2); BLOOD UREA NITROGEN 13 MG/DL (9-23); CALCIUM LEVEL 9.5 MG/DL (8.5-10.1); CARBON DIOXIDE LEVEL 27 MMOL/L (20-31); CHLORIDE LEVEL 108 MMOL/L (98-107); CREATININE FOR GFR 0.85 MG/DL (0.70-1.30); GLOMERULAR FILTRATION RATE > 60.0 (>56); GLUCOSE, FASTING 91 MG/DL (60-100); POTASSIUM SERUM 4.4 MMOL/L (3.5-5.1); SALICYLATE LEVEL < 3.0 MG/DL (<30); SODIUM LEVEL 139 MMOL/L (136-145)
[2024-07-12 15:15] LABS: THYROID STIMULATING HORMONE 1.401 uIU/ML (0.55-4.78)
[2024-07-12] MEDS ORDERED: LORA1TAB23 PO (15:57)
[2024-07-12] MEDS ORDERED: FLUT1BLS8 INH (15:57)
[2024-07-12] MEDS ORDERED: HOME MED LIST COMPLETE! XX SCH (16:00)
[2024-07-12] MEDS ORDERED: MOM 30ML SUSPENSION UDC PO PRN (16:10)
[2024-07-12] MEDS ORDERED: LORazepam 1 MG TAB PO PRN (16:10)
[2024-07-12] MEDS ORDERED: MAALOX 30 ML SUSP *UDC PO PRN (16:10)
[2024-07-12] MEDS ORDERED: diphenhydrAMINE 25MG CAP PO PRN (16:10)
[2024-07-12] MEDS ORDERED: IBUPROFEN 400MG TAB PO PRN (16:10)
[2024-07-12] MEDS ORDERED: ACETAMINOPHEN 325 MG TAB PO PRN (16:10)
[2024-07-12 22:03] VITALS: BP 143/99; TEMP 97.8; O2SAT 93
[2024-07-12] MEDS: traZODone 50 MG TAB PO PRN (23:08)
[2024-07-13 06:19] VITALS: BP 120/64; TEMP 97.8; O2SAT 94
[2024-07-13] MEDS: ADVAIR HFA 230/21MCG INHALER INH SCH (08:00)
[2024-07-13] MEDS: TIOTROPIUM INHALER/CAPSULE (SPIRIVA) INH SCH (08:00)
[2024-07-13] MEDS ORDERED: ADVAIR HFA 115/21MCG INHALER INH SCH (21:00)
== END 2024-07-13 12:38 | disposition home or self-care (01) | DRG 755 ==
LOC: M ED 13:53 → M ED INP 16:07 → M PSY 20:50
PROVIDERS: ADMIT Psychiatry & Neurology Psychiatry; ATTEND Psychiatry & Neurology Psychiatry
DX: F43.25 Adjustment disorder with mixed disturbance of emotions and conduct (principal); F43.10 Post-traumatic stress disorder, unspecified; F41.9 Anxiety disorder, unspecified; M54.50 Low back pain, unspecified; G89.29 Other chronic pain; Z79.899 Other long term (current) drug therapy

== ENCOUNTER → 2024-07-25 | Outpatient (CLI) | payer OTHER ==
[~2024-07-25] MED LIST changes: +FLUT1BLS8 INH; +LORA1TAB23 PO
== END ==
LOC: M RAD 09:02
PROVIDERS: ATTEND Orthopaedic Surgery
DX: M47.27 Other spondylosis with radiculopathy, lumbosacral region (principal); G95.19 Other vascular myelopathies; M48.061 Spinal stenosis, lumbar region without neurogenic claudication

== ENCOUNTER 2024-08-22 12:42 | Outpatient (RCR) | payer OTHER | END 2024-08-25 | LOC: M PT 12:42 | PROVIDERS: ATTEND Orthopaedic Surgery | DX: M47.27 Other spondylosis with radiculopathy, lumbosacral region (principal); G89.29 Other chronic pain ==

== ENCOUNTER → 2024-10-30 | Outpatient (CLI) | payer OTHER ==
[2024-10-30 14:58] LABS: Trichomonas vaginalis (AMP) NOT DETECTED (NEGATIVE)
[2024-10-30 15:04] LABS: BASO # 0.1 10^3/uL (0.0-0.2); BASO % 1.4 % (0.0-1.0); EOS # 0.1 10^3/uL (0.0-0.5); EOS % 1.1 % (0.0-3.0); HEMATOCRIT 47.3 % (42.0-52.0); HEMOGLOBIN 15.1 g/dl (13.5-17.5); LYMPH # 2.2 10^3/uL (1.5-5.0); LYMPH % 34.6 % (24.0-44.0); MEAN CORPUSCULAR HEMOGLOBIN 30.1 pg (27.0-33.0); MEAN CORPUSCULAR HGB CONC 31.9 g/dl (32.0-36.5); MEAN CORPUSCULAR VOLUME 94.4 fl (80.0-96.0); MONO # 0.4 10^3/uL (0.0-0.8); MONO % 7.1 % (2.0-8.0); NEUTROPHILS # 3.5 10^3/uL (1.5-8.5); NEUTROPHILS % 55.5 % (36.0-66.0); PLATELET COUNT, AUTOMATED 348 10^3/uL (150-450); RED BLOOD COUNT 5.01 10^6/uL (4.30-6.10); WHITE BLOOD COUNT 6.2 10^3/uL (4.0-10.0)
[2024-10-30 15:11] LABS: ERYTHROCYTE SEDIMENTATION RATE 15 mm/hr (0-20)
[2024-10-30 15:14] LABS: ALBUMIN 3.7 G/DL (3.2-5.2); ALKALINE PHOSPHATASE 95 U/L (40-129); ALT/SGPT 14 U/L (7.0-40); AST/SGOT 17 U/L (<34); BILIRUBIN,TOTAL 0.2 MG/DL (0.3-1.2); BLOOD UREA NITROGEN 15 MG/DL (9-23); C REACTIVE PROTEIN QUANTITATIV < 0.50 MG/DL (<1.0); CALCIUM LEVEL 9.2 MG/DL (8.5-10.1); CARBON DIOXIDE LEVEL 32 MMOL/L (20-31); CHLORIDE LEVEL 109 MMOL/L (98-107); CHOLESTEROL LEVEL 175 MG/DL (<200); CHOLESTEROL RISK RATIO 3.18 (<5); CREATININE FOR GFR 0.95 MG/DL (0.70-1.30); GLOMERULAR FILTRATION RATE > 60.0 (>56); GLUCOSE, FASTING 111 MG/DL (60-100); IRON (FE) 43 UG/DL (65-175); LDL CHOLESTEROL 105.2 MG/DL (<100); MAGNESIUM LEVEL 1.9 MG/DL (1.8-2.4); PERCENT SATURATION 14.2 % (19.7-50.0); POTASSIUM SERUM 5.5 MMOL/L (3.5-5.1); SODIUM LEVEL 146 MMOL/L (136-145); TOTAL IRON BINDING CAPACITY 302 UG/DL (250-425); TOTAL PROTEIN 6.8 G/DL (5.7-8.2); TRIGLYCERIDES LEVEL 74 MG/DL (<150)
[2024-10-30 15:19] LABS: TOTAL 25(OH) VITAMIN D 18.9 NG/ML (20.0-100.0)
[2024-10-30 15:20] LABS: FERRITIN 115.3 NG/ML (10.5-307.3)
[2024-10-30 15:21] LABS: GC DNA AMPLIFICATION NEGATIVE (NEGATIVE)
[2024-10-30 15:22] LABS: FOLATE 5.43 NG/ML (>5.4); VITAMIN B12 LEVEL 457 PG/ML (211-911)
[2024-10-30 15:33] LABS: HEPATITIS B SURFACE ANTIGEN NEGATIVE (NEGATIVE)
[2024-10-30 15:41] LABS: HEMOGLOBIN A1c 5.5 % (4.0-6.0)
[2024-10-30 15:46] LABS: HIV 1&2 SCREEN NEGATIVE (NEGATIVE)
[2024-10-30 15:51] LABS: HEPATITIS B CORE ANTIBODY IGM NEGATIVE (NEGATIVE)
[2024-10-30 15:54] LABS: HEPATITIS C VIRUS ABY INDEX 0.13 INDEX (<0.8)
== END ==
LOC: M PLALAB 10:12
PROVIDERS: ATTEND Nurse Practitioner Family
DX: R53.83 Other fatigue (principal); R32 Unspecified urinary incontinence; Z13.220 Encounter for screening for lipoid disorders

== ENCOUNTER → 2024-11-02 | Outpatient (CLI) | payer OTHER | LOC: M PLAIMG 07:36 | PROVIDERS: ATTEND Nurse Practitioner Family | DX: R20.0 Anesthesia of skin (principal); R93.89 Abnormal findings on diagnostic imaging of other specified body structures ==

== ENCOUNTER → 2024-11-30 | Outpatient (CLI) | payer OTHER | LOC: M RAD 14:33 | PROVIDERS: ATTEND Nurse Practitioner Family | DX: R32 Unspecified urinary incontinence (principal) ==

== ENCOUNTER → 2024-12-04 | Outpatient (CLI) | payer OTHER ==
[2024-12-04 18:48] LABS: BASO # 0.1 10^3/uL (0.0-0.2); BASO % 1.3 % (0.0-1.0); EOS # 0.1 10^3/uL (0.0-0.5); EOS % 1.3 % (0.0-3.0); HEMATOCRIT 45.2 % (42.0-52.0); HEMOGLOBIN 14.7 g/dl (13.5-17.5); LYMPH # 2.8 10^3/uL (1.5-5.0); MEAN CORPUSCULAR HEMOGLOBIN 30.3 pg (27.0-33.0); MEAN CORPUSCULAR HGB CONC 32.5 g/dl (32.0-36.5); MEAN CORPUSCULAR VOLUME 93.2 fl (80.0-96.0); MONO # 0.6 10^3/uL (0.0-0.8); NEUTROPHILS # 2.1 10^3/uL (1.5-8.5); NEUTROPHILS % 37.2 % (36.0-66.0); PLATELET COUNT, AUTOMATED 294 10^3/uL (150-450); RED BLOOD COUNT 4.85 10^6/uL (4.30-6.10); WHITE BLOOD COUNT 5.6 10^3/uL (4.0-10.0)
[2024-12-04 19:13] LABS: ALBUMIN 3.7 G/DL (3.2-5.2); ALKALINE PHOSPHATASE 91 U/L (40-129); ALT/SGPT 15 U/L (7.0-40); AST/SGOT 17 U/L (<34); BILIRUBIN,TOTAL 0.4 MG/DL (0.3-1.2); BLOOD UREA NITROGEN 12 MG/DL (9-23); CALCIUM LEVEL 8.7 MG/DL (8.5-10.1); CARBON DIOXIDE LEVEL 27 MMOL/L (20-31); CHLORIDE LEVEL 106 MMOL/L (98-107); GLOMERULAR FILTRATION RATE > 60.0 (>56); GLUCOSE, FASTING 87 MG/DL (60-100); POTASSIUM SERUM 4.6 MMOL/L (3.5-5.1); RHEUMATOID FACTOR QUANT 20.6 IU/ML (<14); SODIUM LEVEL 141 MMOL/L (136-145); TOTAL PROTEIN 6.6 G/DL (5.7-8.2)
== END ==
LOC: M PLALAB 14:56
PROVIDERS: ATTEND Nurse Practitioner Family
DX: M19.90 Unspecified osteoarthritis, unspecified site (principal); R07.9 Chest pain, unspecified

== ENCOUNTER → 2024-12-12 | Outpatient (CLI) | payer OTHER ==
[~2024-12-12] MED LIST changes: +PROHANCE 279.3MG/ML 15ML VIAL As Ordered ONE; +PROHANCE 279.3MG/ML 5ML VIAL As Ordered ONE
== END ==
LOC: M RAD 14:38
PROVIDERS: ATTEND Nurse Practitioner Family
DX: S09.90XA Unspecified injury of head, initial encounter (principal); H93.13 Tinnitus, bilateral; R11.0 Nausea; R42 Dizziness and giddiness; M47.27 Other spondylosis with radiculopathy, lumbosacral region; G95.19 Other vascular myelopathies; Z82.49 Family history of ischemic heart disease and other diseases of the circulatory system
CPT/HCPCS: 70553; A9576

== ENCOUNTER → 2025-01-22 | Outpatient (REF) | payer OTHER ==
[~2025-01-22] MED LIST changes: -FLOM0.4C39 PO; -PRED50TA; +PRED50TA57; -PROHANCE 279.3MG/ML 15ML VIAL As Ordered ONE; -PROHANCE 279.3MG/ML 5ML VIAL As Ordered ONE; +TAMS-18 PO
[2025-01-22 17:21] LABS: APPEARANCE, URINE CLEAR (CLEAR); BACTERIA, URINE AUTO NEGATIVE (NEGATIVE); BILIRUBIN, URINE AUTO NEGATIVE (NEGATIVE); BLOOD, URINE BLOOD NEGATIVE (NEGATIVE); COLOR, URINE YELLOW (YELLOW); GLUCOSE, URINE (UA) AUTO NEGATIVE (NEGATIVE); KETONE, URINE AUTO NEGATIVE (NEGATIVE); LEUKOCYTE ESTERASE, URINE AUTO NEGATIVE (NEGATIVE); NITRITE, URINE AUTO NEGATIVE (NEGATIVE); PROTEIN, URINE AUTO NEGATIVE (NEGATIVE); RBC, URINE AUTO 1 /HPF (0-3); SQUAMOUS EPITHELIAL CELL UR AU 1 /HPF (0-6); WBC, URINE AUTO 2 /HPF (0-3)
== END ==
LOC: M SMT 16:45
PROVIDERS: ATTEND Urology
DX: R39.9 Unspecified symptoms and signs involving the genitourinary system (principal)

== ENCOUNTER → 2025-01-22 | Outpatient (REF) | payer OTHER | LOC: M SMT 17:31 | PROVIDERS: ATTEND Urology | DX: R39.9 Unspecified symptoms and signs involving the genitourinary system (principal) ==

== ENCOUNTER → 2025-02-01 | Outpatient (CLI) | payer OTHER | LOC: M RAD 08:02 | PROVIDERS: ATTEND Nurse Practitioner Family | DX: Z12.2 Encounter for screening for malignant neoplasm of respiratory organs (principal); Z87.891 Personal history of nicotine dependence ==

== ENCOUNTER → 2025-02-12 | Outpatient (CLI) | payer OTHER | LOC: M PLARAD 13:19 | PROVIDERS: ATTEND Nurse Practitioner Family | DX: R91.1 Solitary pulmonary nodule (principal) | CPT/HCPCS: 78815; A9552 ==

== ENCOUNTER → 2025-02-14 | Outpatient (CLI) | payer OTHER ==
[~2025-02-14] MED LIST changes: +PROHANCE 279.3MG/ML 15ML VIAL As Ordered ONE; +PROHANCE 279.3MG/ML 5ML VIAL As Ordered ONE
== END ==
LOC: M RAD 12:36
PROVIDERS: ATTEND Nurse Practitioner Family
DX: M19.09 Primary osteoarthritis, other specified site (principal)
CPT/HCPCS: 73223; A9576

== ENCOUNTER → 2025-08-19 | Outpatient (CLI) | payer OTHER ==
[~2025-08-19] MED LIST changes: +GABA-1171 PO; +OLAN1TAB16 PO; -PROHANCE 279.3MG/ML 15ML VIAL As Ordered ONE; -PROHANCE 279.3MG/ML 5ML VIAL As Ordered ONE; +SILD25TA2 PO
== END ==
LOC: M PLAIMG 09:53
PROVIDERS: ATTEND Internal Medicine Pulmonary Disease
DX: R91.1 Solitary pulmonary nodule (principal)